=== PATIENT | male | born 1965 | race American Indian/Alaskan Native ===

== ENCOUNTER 2017-04-02 02:56 | Emergency (ER) | payer BC ==
--- NOTE | 2017-04-02 04:15 | C.PDOC ---
History Of Present Illness Patient presents to the emergency room with right buttock pain that started today. Patient reports that the pain radiates down his right leg. Patient states pain is worst when sitting down. Patient notes some occasional leg cramping. Patient denies any trauma/injury, numbness, weakness, any sensory changes, or any other complaints. Time Seen by Provider: 04/02/17 04:15 Chief Complaint (Nursing): Lower Extremity Problem/Injury History Per: Patient History/Exam Limitations: no limitations Onset/Duration Of Symptoms: Hrs Current Symptoms Are (Timing): Still Present Severity: Moderate Pain Scale Rating Of: 4 Recent travel outside of the [place]: No Past Medical History Reviewed: Historical Data, Nursing Documentation, Vital Signs Vital Signs: Last Vital Signs Temp 97.5 F L 04/02/17 03:54 Pulse 60 04/02/17 03:54 Resp 20 04/02/17 03:54 BP 134/80 04/02/17 03:54 Pulse Ox 95 04/02/17 04:36 - Medical History PMH: HTN Family History: States: No Known Family Hx - Social History Hx Alcohol Use: No Hx Substance Use: No Review Of Systems Constitutional: Negative for: Fever, Chills Gastrointestinal: Negative for: Nausea, Vomiting, Diarrhea Musculoskeletal: Positive for: Other (Right buttock pain. Radiates to right leg. Occasional leg cramping.) Neurological: Negative for: Weakness, Numbness Physical Exam - Physical Exam Appears: Non-toxic Skin: Warm, Dry, No Rash Back: No Vertebral Tenderness, No Paraspinal Tenderness, Straight Leg Raising ( Leg raise pain at 45 degrees. ), Other (Right buttock tenderness. ) Extremity: Normal ROM, No Tenderness, No Swelling Neurological/Psych: Oriented x3, Normal Speech, Normal Cognition, Normal Motor, Normal Sensation (Sensory fully intact. Can move all toes.) Gait: Steady ED Course And Treatment - Laboratory Results Result Diagrams: 04/02/17 05:04 04/02/17 05:04 O2 Sat by Pulse Oximetry: 95 Pulse Ox Interpretation: Normal Reevaluation Time: 05:52 Reassessment Condition: Improved Disposition Counseled Patient/Family Regarding: Studies Performed, Diagnosis, Need For Followup, Rx Given - Disposition Disposition: HOME/ ROUTINE Disposition Time: 04:15 Condition: FAIR Prescriptions: Ibuprofen [Motrin] 600 mg PO TID #15 tab Instructions: Sciatica (ED) - Clinical Impression Clinical Impression: Sciatica - Scribe Statement The provider has reviewed the documentation as recorded by the Belibe Jose Clancy Provider Belibkvng Attestation: All medical record entries made by the Scribe were at my direction and personally dictated by me. I have reviewed the chart and agree that the record accurately reflects my personal performance of the history, physical exam, medical decision making, and the department course for this patient. I have also personally directed, reviewed, and agree with the discharge instructions and disposition.
[2017-04-02] MEDS ORDERED: Sodium Chloride 0.9% 500 ML IV ONE (04:26)
[2017-04-02] MEDS ORDERED: Sodium Chloride 0.9% 1,000 ML ONE (05:03)
[2017-04-02 05:09] LABS: BASO # 0.1 K/uL (0.0-0.2); BASO % 0.7 % (0.0-2.0); EOS # 0.6 K/uL (0.0-0.7); EOS % 7.1 % (0.0-4.0); HEMATOCRIT 38.6 % (35.0-51.0); LYMPH # 3.2 K/uL (1.0-4.3); LYMPH % 39.9 % (20.0-40.0); MEAN CELL VOLUME 88.6 fL (80.0-94.0); MEAN CORPUSCULAR HEMOGLOBIN 29.1 pg (27.0-31.0); MEAN CORPUSCULAR HGB CONC 32.9 g/dL (33.0-37.0); MEAN PLATELET VOLUME 8.5 fL (7.2-11.7); MONO # 0.6 K/uL (0.0-0.8); MONO % 7.7 % (0.0-10.0); RBC URINE 1 /hpf (0-3); RED CELL DISTRIBUTION WIDTH 13.2 % (11.5-14.5); URINE BILIRUBIN NEGATIVE (NEGATIVE); URINE BLOOD NEGATIVE (NEGATIVE); URINE COLOR Yellow (YELLOW); URINE GLUCOSE (UA) NORMAL (Normal); URINE KETONE NEGATIVE (NEGATIVE); URINE LEUKOCYTE ESTERASE NEG Leu/uL (Negative); URINE PROTEIN NEGATIVE (NEGATIVE); URINE UROBILINOGEN NORMAL mg/dL (0.2-1.0); WBC URINE < 1 /hpf (0-5); WHITE BLOOD COUNT 7.9 K/uL (4.8-10.8)
[2017-04-02 05:16] LABS: SODIUM 140 mmol/L (132-148)
[2017-04-02 05:18] LABS: GFR AFRICAN-AMERICAN > 60
[2017-04-02 05:19] LABS: ALB/GLOB RATIO 1.1 (1.0-2.1); ALKALINE PHOSPHATASE 66 U/L (38-126); ALT/SGPT 32 U/L (21-72); AST/SGOT 50 U/L (17-59); BILIRUBIN,TOTAL 0.6 mg/dL (0.2-1.3); BLOOD UREA NITROGEN 19 mg/dL (9-20); CARBON DIOXIDE 28 mmol/L (22-30); GLUCOSE,RANDOM 79 mg/dL (75-110); TOTAL PROTEIN 7.9 g/dL (6.3-8.3)
[2017-04-02 05:20] LABS: CALCIUM 8.9 mg/dl (8.6-10.4)
[2017-04-02 05:22] LABS: POTASSIUM 4.4 mmol/L (3.6-5.2)
[2017-04-02 06:16] VITALS: BP 141/72; PULSE 66; RESP 17; TEMP 98.1; O2SAT 96
[2017-04-02 17:02] LABS: CHLORIDE 100 mmol/L (98-107)
== END 2017-04-02 06:16 | disposition home or self-care (01) ==
LOC: C.ER 02:56
DX: M54.31 Sciatica, right side (principal)
CPT/HCPCS: 80053; 81001; 82009; 85025; 96361; 96374; 99284; J1885; J7040